=== PATIENT | female | born 1955 | race Caucasian/White ===

== ENCOUNTER 2018-01-11 08:09 | Inpatient (IN) | payer MEDICARE, MEDICAID ==
[2018-01-11] MEDS: Sodium Chloride 0.9% 1,000 ML IV SCH ×3 (16:10→22:39)
--- NOTE | 2018-01-11 16:21 | PCM.HP ---
H&P History of Present Illness - General Date of Service: 01/11/18 Admit Problem/Dx: Admission Diagnosis/Problem Admission Diagnosis/Problem Hypernatremia Source of Information: Other (Caregiver) History Limitations: Reports: Altered Mental Status - History of Present Illness Initial Comments - Free Text/Narative: This is a 62-year-old female patient with profound Down syndrome came to the clinic because of not able to eat for the last 2-3 days and sleeping and not responding. She was found to have elevated creatinine and sodium of over 170. She was sent over for admission for rehydration. She was found to be severely dehydrated. The caregiver says she normally eats when they give her some food and drinks. She said no fevers. She did have 1 small emesis here at the hospital when she was admitted and a loose stool. Before that she has not had that. Cannot get any other history from this patient or the caregiver has no more information either. Past Medical History Neurological History: Reports: Seizure, Other (See Below) (Down syndrome, trigeminal neuralgia) Endocrine/Metabolic History: Reports: Hypothyroidism Social & Family History - Family History Family Medical History: Unobtainable - Living Situation & Occupation Living situation: Reports: Alone (Lives in a senior care.) H&P Review of Systems - Review of Systems: Review Of Systems: Unable To Obtain Exam - Exam Exam: See Below - Exam General: Sedated, Lethargic. No: Alert, Oriented, Cooperative HEENT: Posterior Pharynx Clear, TMs Clear Neck: Supple, Trachea Midline Lungs: Clear to Auscultation, Normal Respiratory Effort. No: Crackles, Rales, Rhonchi Cardiovascular: Regular Rate, Regular Rhythm. No: Tachycardia, Systolic Murmur , Diastolic Murmur GI/Abdominal Exam: Normal Bowel Sounds, Soft, Non-Tender, No Organomegaly, No Distention Back Exam: Normal Inspection Extremities: No Pedal Edema Neurological: Normal Tone. No: Normal Speech Neuro Extensive - Mental Status: Other (Patient response to painful stimuli. Other than that she's sleeping.). No: Alert Neuro Extensive - Motor, Sensory, Reflexes: No: Normal Gait Psychiatric: No: Alert, Normal Affect, Normal Mood *Q Meaningful Use (ADM) - VTE *Q VTE Criteria *Q: - Stroke *Q Stroke Criteria *Q: - AMI *Q AMI Criteria *Q: - Problem List (1) Hypernatremia SNOMED Code(s): 40558488 ICD Code: E87.0 - HYPEROSMOLALITY AND HYPERNATREMIA Status: Acute Current Visit: Yes (2) Acute renal failure SNOMED Code(s): 13228133 ICD Code: N17.9 - ACUTE KIDNEY FAILURE, UNSPECIFIED Status: Acute Current Visit: Yes (3) Dehydration SNOMED Code(s): 79972179 ICD Code: E86.0 - DEHYDRATION Status: Acute Current Visit: Yes (4) Down syndrome SNOMED Code(s): 42072287 ICD Code: Q90.9 - DOWN SYNDROME, UNSPECIFIED Status: Acute Current Visit : No (5) Palliative care encounter SNOMED Code(s): 138141590 ICD Code: Z51.5 - ENCOUNTER FOR PALLIATIVE CARE Status: Acute Current Visit: Yes (6) Hypothyroidism SNOMED Code(s): 72121617 ICD Code: E03.9 - HYPOTHYROIDISM, UNSPECIFIED Status: Acute Current Visit : No Problem List Initiated/Reviewed/Updated: Yes Orders Last 24hrs: Active Orders 24 hr Category Date Time Status Patient Status [ADT] Routine ADT 01/11/18 15:20 Active Patient Status [ADT] Routine ADT 01/11/18 16:12 Ordered Height and Weight [RC] DAILY Care 01/11/18 16:12 Ordered Intake and Output [RC] QSHIFT Care 01/11/18 16:13 Ordered Oxygen Therapy [RC] PRN Care 01/11/18 16:12 Ordered Up With Assistance [RC] ASDIRECTED Care 01/11/18 16:12 Ordered VTE/DVT Education [RC] Per Unit Routine Care 01/11/18 16:12 Ordered Vital Signs [RC] Q4H Care 01/11/18 16:12 Ordered Clear Liquid Diet [DIET] Diet 01/11/18 Dinner Ordered CULTURE BLOOD [BC] Routine Lab 01/11/18 15:41 Ordered CULTURE BLOOD [BC] Routine Lab 01/11/18 16:08 Ordered SODIUM,URINE RANDOM [URCHEM] Routine Lab 01/11/18 15:41 Ordered UA W/MICROSCOPIC [URIN] Routine Lab 01/11/18 15:41 Ordered Enoxaparin [Lovenox] Med 01/11/18 16:15 Ordered 40 mg SUBCUT Q24H Sodium Chloride 0.9% [Normal Saline] 1,000 ml Med 01/11/18 15:45 Active IV ASDIRECTED Sequential Compression Device [OM.PC] Per Unit Routine Oth 01/11/18 16:14 Ordered Resuscitation Status Routine Resus Stat 01/11/18 16:12 Ordered Medication Orders Sodium Chloride (Normal Saline) 1,000 mls @ 150 mls/hr IV ASDIRECTED MAR Assessment/Plan Comment:: 1. Admit for observation. 2. Rehydration with normal saline because she dehydrated. If her sodium stays up later and she is rehydrated consider D5W. 3. Clear liquids. 4. Patient doesn't walk so constant changing patient position is devoid ulcers. 5. VTE prophylaxis. 6. DNR per senior care staff. 7. Urine sodium, UA, blood cultures. 8. She had a chest x-ray in the clinic that was read as negative. No signs of infection so will not start antibiotics at this time.
[2018-01-11] MEDS: Enoxaparin 30 MG/0.3 ML Syringe SUBCUT SCH (18:46)
[2018-01-11] MEDS: Sodium Chloride 0.45% 1,000 ML IV SCH (23:41)
[2018-01-12] MEDS: Sodium Chloride 0.45% 1,000 ML IV SCH (06:11)
--- NOTE | 2018-01-12 08:57 | PCM.PN ---
- General Info Date of Service: 01/12/18 Admission Dx/Problem (Free Text): Patient is alert today. She cannot communicate. Nurses states she had one small diaper of urination that was concentrated. - Patient Data Vitals - Most Recent: Last Vital Signs Temp 97.8 F 01/12/18 04:00 Pulse 69 01/12/18 04:00 Resp 18 01/12/18 04:00 BP 77/35 L 01/12/18 04:00 Pulse Ox 93 L 01/12/18 04:00 Weight - Most Recent: 84 lb 14.72 oz I&O - Last 24 Hours: Intake & Output 01/11/18 01/12/18 01/12/18 22:59 06:59 14:59 Intake Total 1698 1455 Output Total 15 Balance 1683 1455 Lab Results Last 24 Hours: Laboratory Results - last 24 hr 01/11/18 01/11/18 01/11/18 Range/Units 17:00 17:00 22:30 WBC (4.5-12.0) X10-3/uL RBC (3.23-5.20) x10(6)uL Hgb (11.5-15.5) g/dL Hct (30.0-51.3) % MCV (80-96) fL MCH (27.7-33.6) pg MCHC (32.2-35.4) g/dL RDW (11.5-15.5) % Plt Count (125-369) X10(3)uL MPV (7.4-10.4) fL Neut % (Auto) (46-82) % Lymph % (Auto) (13-37) % [place] % (Auto) (4-12) % Eos % (Auto) (1.0-5.0) % Baso % (Auto) (0-2) % Neut # (Auto) (1.6-8.3) # Lymph # (Auto) (0.6-5.0) # [place] # (Auto) (0.0-1.3) # Eos # (Auto) (0.0-0.8) # Baso # (Auto) (0.0-0.2) # Sodium 174 H* (135-145) mmol/L Potassium (3.5-5.3) mmol/L Chloride (100-110) mmol/L Carbon Dioxide (21-32) mmol/L BUN (7-18) mg/dL Creatinine (0.55-1.02) mg/dL Est Cr Clr Drug Dosing mL/min Estimated GFR (MDRD) (>60) BUN/Creatinine Ratio (9-20) Glucose (80-116) mg/dL Calcium (8.6-10.2) mg/dL Total Bilirubin (0.1-1.3) mg/dL AST (5-25) IU/L ALT (12-36) U/L Alkaline Phosphatase (56-112) IU/L Total Protein (6.0-8.0) g/dL Albumin (3.2-4.6) g/dL Globulin g/dL Albumin/Globulin Ratio Urine Color Yellow (YELLOW) Urine Appearance Cloudy (CLEAR) Urine pH 5.0 (5.0-6.5) Ur Specific [place] 1.025 (1.010-1.025) Urine Protein Negative (NEGATIVE) mg/dL Urine Glucose (UA) Normal (NEGATIVE) mg/dL Urine Ketones 15 H (NEGATIVE) mg/dL Urine Occult Blood Negative (NEGATIVE) Urine Nitrite Negative (NEGATIVE) Urine Bilirubin Small H (NEGATIVE) Urine Urobilinogen 4 H (NEGATIVE) mg/dL Ur Leukocyte Esterase Small H (NEGATIVE) Urine RBC 0-5 (0) Urine WBC 0-5 (0) Ur Squamous Epith Cells Moderate H (NS,R,O) Urine Bacteria Few H (NS) Hyaline Casts Few H (NS) Urine Mucus Few H (NS) Ur Random Sodium 36 mmol/L 01/12/18 01/12/18 Range/Units 06:43 06:43 WBC 6.5 (4.5-12.0) X10-3/uL RBC 3.08 L (3.23-5.20) x10(6)uL Hgb 10.4 L (11.5-15.5) g/dL Hct 32.6 (30.0-51.3) % MCV 105.8 H (80-96) fL MCH 34.0 H (27.7-33.6) pg MCHC 32.1 L (32.2-35.4) g/dL RDW 13.8 (11.5-15.5) % Plt Count 99 L (125-369) X10(3)uL MPV 11.1 H (7.4-10.4) fL Neut % (Auto) 80.8 (46-82) % Lymph % (Auto) 13.7 (13-37) % [place] % (Auto) 4.6 (4-12) % Eos % (Auto) 1 (1.0-5.0) % Baso % (Auto) 0 (0-2) % Neut # (Auto) 5.3 (1.6-8.3) # Lymph # (Auto) 0.9 (0.6-5.0) # [place] # (Auto) 0.3 (0.0-1.3) # Eos # (Auto) 0.0 (0.0-0.8) # Baso # (Auto) 0.0 (0.0-0.2) # Sodium 171 H* (135-145) mmol/L Potassium 3.3 L (3.5-5.3) mmol/L Chloride 137 H* (100-110) mmol/L Carbon Dioxide 24 (21-32) mmol/L BUN 76 H (7-18) mg/dL Creatinine 2.2 H* (0.55-1.02) mg/dL Est Cr Clr Drug Dosing 15.71 mL/min Estimated GFR (MDRD) 22 L (>60) BUN/Creatinine Ratio 34.5 H (9-20) Glucose 67 L (80-116) mg/dL Calcium 7.9 L (8.6-10.2) mg/dL Total Bilirubin 0.9 (0.1-1.3) mg/dL AST 42 H (5-25) IU/L ALT 35 (12-36) U/L Alkaline Phosphatase 36 L (56-112) IU/L Total Protein 5.4 L (6.0-8.0) g/dL Albumin 1.9 L (3.2-4.6) g/dL Globulin 3.5 g/dL Albumin/Globulin Ratio 0.5 Urine Color (YELLOW) Urine Appearance (CLEAR) Urine pH (5.0-6.5) Ur Specific [place] (1.010-1.025) Urine Protein (NEGATIVE) mg/dL Urine Glucose (UA) (NEGATIVE) mg/dL Urine Ketones (NEGATIVE) mg/dL Urine Occult Blood (NEGATIVE) Urine Nitrite (NEGATIVE) Urine Bilirubin (NEGATIVE) Urine Urobilinogen (NEGATIVE) mg/dL Ur Leukocyte Esterase (NEGATIVE) Urine RBC (0) Urine WBC (0) Ur Squamous Epith Cells (NS,R,O) Urine Bacteria (NS) Hyaline Casts (NS) Urine Mucus (NS) Ur Random Sodium mmol/L Med Orders - Current: Current Medications Enoxaparin Sodium (Lovenox) 30 mg SUBCUT Q24H [facility] Last Admin: 01/11/18 18:46 Dose: 30 mg Sodium Chloride (Sodium Chloride 0.45%) 1,000 mls @ 150 mls/hr IV ASDIRECTED [facility] Last Admin: 01/12/18 06:11 Dose: 150 mls/hr Discontinued Medications Sodium Chloride (Normal Saline) 1,000 mls @ 150 mls/hr IV ASDIRECTED [facility] Last Admin: 01/11/18 22:39 Dose: 150 mls/hr - Exam General: Alert. No: Oriented Lungs: Clear to Auscultation, Normal Respiratory Effort Cardiovascular: Regular Rate, Regular Rhythm, No Murmurs GI/Abdominal Exam: Normal Bowel Sounds, Soft, Non-Tender Extremities: No Pedal Edema - Problem List & Annotations (1) Hypernatremia SNOMED Code(s): 17025804 Code(s): E87.0 - HYPEROSMOLALITY AND HYPERNATREMIA Status: Acute Current Visit: Yes (2) Acute renal failure SNOMED Code(s): 67757774 Code(s): N17.9 - ACUTE KIDNEY FAILURE, UNSPECIFIED Status: Acute Current Visit: Yes (3) Dehydration SNOMED Code(s): 62006443 Code(s): E86.0 - DEHYDRATION Status: Acute Current Visit: Yes (4) Down syndrome SNOMED Code(s): 89508530 Code(s): Q90.9 - DOWN SYNDROME, UNSPECIFIED Status: Acute Current Visit: No (5) Palliative care encounter SNOMED Code(s): 197224669 Code(s): Z51.5 - ENCOUNTER FOR PALLIATIVE CARE Status: Acute Current Visit: Yes (6) Hypothyroidism SNOMED Code(s): 50600672 Code(s): E03.9 - HYPOTHYROIDISM, UNSPECIFIED Status: Acute Current Visit : No - Problem List Review Problem List Initiated/Reviewed/Updated: Yes - My Orders Last 24 Hours: My Active Orders 01/11/18 15:00 Urinary Catheter Insertion [Insert Urinary Catheter] [OM.PC] Q24H 01/11/18 15:20 Patient Status [ADT] Routine 01/11/18 16:12 Patient Status [ADT] Routine Height and Weight [RC] 06 Oxygen Therapy [RC] PRN Up With Assistance [RC] ASDIRECTED Vital Signs [RC] 00,04,08,12,16,20 Resuscitation Status Routine 01/11/18 16:13 Intake and Output [RC] 06,14,22 01/11/18 16:14 Sequential Compression Device [OM.PC] Per Unit Routine 01/11/18 16:20 CULTURE BLOOD [BC] Routine 01/11/18 16:30 CULTURE BLOOD [BC] Routine 01/11/18 18:00 Enoxaparin [Lovenox] 30 mg SUBCUT Q24H 01/11/18 Dinner Clear Liquid Diet [DIET] 01/12/18 00:00 Bladder Scan [RC] ASDIRECTED - Plan Plan:: 1. Continue aggressive hydration with normal saline until I feel she is hydrated. Then consider giving some free water to bring her sodium down. 2. Advance her diet to pured diet or whatever she is on at the skilled nursing. 3. Restart home medications. 4. Platelets are below 100. There a little bottle 100 before. She's on Lovenox so I'll repeat her CBC and Chem-12 in the a.m.
[2018-01-12] MEDS: Sodium Chloride 0.45% with KCl 1,000 ML IV SCH ×2 (10:09→16:55)
[2018-01-12] MEDS: GENTEAL EYE EYERT SCH ×4 (10:09→20:18)
[2018-01-12] MEDS: Divalproex Sodium 250 MG Tab.ER PO SCH ×2 (10:13→17:58)
[2018-01-12] MEDS: [UNRECOGNIZED DRUG - OTHER] TOP SCH ×2 (10:24→20:18)
[2018-01-12] MEDS: Enoxaparin 30 MG/0.3 ML Syringe SUBCUT SCH (17:54)
[2018-01-12] MEDS: Levothyroxine 75 MCG Tab PO SCH (20:20)
[2018-01-12] MEDS ORDERED: Sodium Chloride 0.45% with KCl 1,000 ML IV SCH (23:45)
[2018-01-13] MEDS: Sodium Chloride 0.45% with KCl 1,000 ML IV SCH (00:08)
--- NOTE | 2018-01-13 08:24 | PCM.PN ---
- General Info Date of Service: 01/13/18 Admission Dx/Problem (Free Text): Patient sleeping this morning. Yesterday she was alert and today sleeping. Not able to give history because of her severe Down syndrome. - Patient Data Vitals - Most Recent: Last Vital Signs Temp 99.4 F 01/13/18 07:17 Pulse 74 01/13/18 05:00 Resp 20 01/13/18 07:17 BP 88/40 L 01/13/18 07:17 Pulse Ox 100 01/13/18 07:17 Weight - Most Recent: 89 lb I&O - Last 24 Hours: Intake & Output 01/12/18 01/13/18 01/13/18 22:59 06:59 14:59 Intake Total 1099 1107 Balance 1099 1107 Lab Results Last 24 Hours: Laboratory Results - last 24 hr 01/12/18 01/13/18 01/13/18 Range/Units 15:07 06:40 06:40 WBC 2.6 L (4.5-12.0) X10-3/uL RBC 2.45 L (3.23-5.20) x10(6)uL Hgb 8.6 L (11.5-15.5) g/dL Hct 25.5 L (30.0-51.3) % MCV 104.0 H (80-96) fL MCH 35.3 H (27.7-33.6) pg MCHC 34.0 (32.2-35.4) g/dL RDW 13.2 (11.5-15.5) % Plt Count 70 L (125-369) X10(3)uL MPV 9.9 (7.4-10.4) fL Neut % (Auto) 64.7 (46-82) % Lymph % (Auto) 23.7 (13-37) % [place] % (Auto) 7.0 (4-12) % Eos % (Auto) 2 (1.0-5.0) % Baso % (Auto) 3 H (0-2) % Neut # (Auto) 1.6 (1.6-8.3) # Lymph # (Auto) 0.6 (0.6-5.0) # [place] # (Auto) 0.2 (0.0-1.3) # Eos # (Auto) 0.1 (0.0-0.8) # Baso # (Auto) 0.1 (0.0-0.2) # Sodium 167 H* 159 H (135-145) mmol/L Potassium 4.3 D (3.5-5.3) mmol/L Chloride 130 H* D (100-110) mmol/L Carbon Dioxide 21 (21-32) mmol/L BUN 48 H D (7-18) mg/dL Creatinine 1.5 H (0.55-1.02) mg/dL Est Cr Clr Drug Dosing 24.15 mL/min Estimated GFR (MDRD) 35 L (>60) BUN/Creatinine Ratio 32.0 H (9-20) Glucose 78 L (80-116) mg/dL Calcium 7.4 L (8.6-10.2) mg/dL Total Bilirubin 0.8 (0.1-1.3) mg/dL AST 85 H D (5-25) IU/L ALT 47 H D (12-36) U/L Alkaline Phosphatase 31 L (56-112) IU/L Total Protein 5.0 L (6.0-8.0) g/dL Albumin 1.7 L* (3.2-4.6) g/dL Globulin 3.3 g/dL Albumin/Globulin Ratio 0.5 Adan Results Last 24 Hours: Microbiology 01/11/18 16:30 Aerobic Blood Culture - Preliminary Blood NO GROWTH AFTER 1 DAY Anaerobic Blood Culture - Preliminary NO GROWTH AFTER 1 DAY 01/11/18 16:20 Aerobic Blood Culture - Preliminary Blood NO GROWTH AFTER 1 DAY Anaerobic Blood Culture - Preliminary NO GROWTH AFTER 1 DAY Med Orders - Current: Current Medications Divalproex Sodium (Depakote Er) 250 mg PO DAILY [facility] Last Admin: 01/12/18 10:13 Dose: 250 mg Divalproex Sodium (Depakote Er) 500 mg PO WITHDINNER [facility] Last Admin: 01/12/18 17:58 Dose: 500 mg Hydrophilic Base (Aquaphilic Ointment) 0 gm TOP BID@10,20 [facility] Last Admin: 01/12/18 20:18 Dose: 1 applic Levothyroxine Sodium (Levothyroxine) 75 mcg PO BEDTIME [facility] Last Admin: 01/12/18 20:20 Dose: 75 mcg Genteal Eye Drops * (Ptom) 0 drop EYERT QID [facility] Last Admin: 01/12/18 20:18 Dose: 1 drop Discontinued Medications Enoxaparin Sodium (Lovenox) 30 mg SUBCUT Q24H [facility] Last Admin: 01/12/18 17:54 Dose: 30 mg Sodium Chloride (Normal Saline) 1,000 mls @ 150 mls/hr IV ASDIRECTED [facility] Last Admin: 01/11/18 22:39 Dose: 150 mls/hr Sodium Chloride (Sodium Chloride 0.45%) 1,000 mls @ 150 mls/hr IV ASDIRECTED [facility] Last Admin: 01/12/18 06:11 Dose: 150 mls/hr Potassium Chloride/Sodium Chloride (1/2 Ns With 20 Meq Kcl) 1,000 mls @ 100 mls /hr IV Q7H [facility] Last Admin: 01/13/18 00:08 Dose: Not Given Potassium Chloride/Sodium Chloride (1/2 Ns With 20 Meq Kcl) 1,000 mls @ 100 mls /hr IV ASDIRECTED [facility] Last Admin: 01/13/18 00:09 Dose: 100 mls/hr - Exam General: Alert, Other (Sleeping) Neck: Supple Lungs: Clear to Auscultation, Normal Respiratory Effort Cardiovascular: Regular Rate, Regular Rhythm, No Murmurs - Problem List & Annotations (1) Hypernatremia SNOMED Code(s): 23182089 Code(s): E87.0 - HYPEROSMOLALITY AND HYPERNATREMIA Status: Acute Current Visit: Yes (2) Acute renal failure SNOMED Code(s): 52255527 Code(s): N17.9 - ACUTE KIDNEY FAILURE, UNSPECIFIED Status: Acute Current Visit: Yes (3) Dehydration SNOMED Code(s): 26231028 Code(s): E86.0 - DEHYDRATION Status: Acute Current Visit: Yes (4) Down syndrome SNOMED Code(s): 41470270 Code(s): Q90.9 - DOWN SYNDROME, UNSPECIFIED Status: Acute Current Visit: No (5) Palliative care encounter SNOMED Code(s): 813023302 Code(s): Z51.5 - ENCOUNTER FOR PALLIATIVE CARE Status: Acute Current Visit: Yes (6) Hypothyroidism SNOMED Code(s): 93014244 Code(s): E03.9 - HYPOTHYROIDISM, UNSPECIFIED Status: Acute Current Visit : No (7) Thrombocytopenia SNOMED Code(s): 642324722 Code(s): D69.6 - THROMBOCYTOPENIA, UNSPECIFIED Status: Acute Current Visit: Yes - Problem List Review Problem List Initiated/Reviewed/Updated: Yes - My Orders Last 24 Hours: My Active Orders 01/12/18 09:00 Dextran 70/Hypromellose [Genteal Tears 0.1%-0.3% Drop] 0 drop EYERT QID Divalproex Sodium [Depakote ER] 250 mg PO DAILY 01/12/18 10:00 Hydrophilic Ointment [Aquaphilic Ointment] 0 gm TOP BID@10,20 01/12/18 18:00 Divalproex Sodium [Depakote ER] 500 mg PO WITHDINNER 01/12/18 21:00 Levothyroxine 75 mcg PO BEDTIME 01/12/18 Lunch Adult Diet [DIET] 01/13/18 08:30 D5 1/2 NS w/ 20 mEq/L KCl 1,000 ml IV ASDIRECTED 01/13/18 15:30 SODIUM,NA [CHEM] Routine - Plan Plan:: 1. Check sodium 3:30 PM today. 2. Change fluids to D5 half-normal 20 KCl at 100 mL an hour. 3. Stop Lovenox due to decrease in platelets. 4. Change vitals to every shift.
[2018-01-13] MEDS: GENTEAL EYE EYERT SCH ×4 (09:41→21:38)
[2018-01-13] MEDS: Divalproex Sodium 250 MG Tab.ER PO SCH ×2 (09:42→18:44)
[2018-01-13] MEDS: [UNRECOGNIZED DRUG - OTHER] TOP SCH ×2 (09:43→21:00)
[2018-01-13] MEDS: D5 1/2 NS w/ 20 mEq/L KCl 1,000 ML IV SCH (15:11)
[2018-01-13] MEDS: Levothyroxine 75 MCG Tab PO SCH (21:38)
[2018-01-14] MEDS: D5 1/2 NS w/ 20 mEq/L KCl 1,000 ML IV SCH ×3 (01:37→21:45)
--- NOTE | 2018-01-14 08:15 | PCM.PN ---
- General Info Date of Service: 01/14/18 Admission Dx/Problem (Free Text): Patient is alert sitting in her chair. Because of her profound Down syndrome she cannot respond to questions. The staff says she is eating about a quarter of her food this time. - Patient Data Vitals - Most Recent: Last Vital Signs Temp 98.2 F 01/14/18 03:25 Pulse 70 01/14/18 03:25 Resp 20 01/14/18 03:25 BP 107/43 L 01/14/18 03:25 Pulse Ox 97 01/14/18 03:25 Weight - Most Recent: 89 lb 8 oz I&O - Last 24 Hours: Intake & Output 01/13/18 01/14/18 01/14/18 22:59 06:59 14:59 Intake Total 786 743 Balance 786 743 Lab Results Last 24 Hours: Laboratory Results - last 24 hr 01/13/18 01/14/18 01/14/18 Range/Units 15:30 06:45 06:45 WBC 3.5 L (4.5-12.0) X10-3/uL RBC 2.69 L (3.23-5.20) x10(6)uL Hgb 9.5 L (11.5-15.5) g/dL Hct 28.2 L (30.0-51.3) % MCV 104.6 H (80-96) fL MCH 35.2 H (27.7-33.6) pg MCHC 33.6 (32.2-35.4) g/dL RDW 12.9 (11.5-15.5) % Plt Count 70 L (125-369) X10(3)uL MPV 10.8 H (7.4-10.4) fL Neut % (Auto) 58.7 (46-82) % Lymph % (Auto) 29.3 (13-37) % [place] % (Auto) 8.6 (4-12) % Eos % (Auto) 2 (1.0-5.0) % Baso % (Auto) 1 (0-2) % Neut # (Auto) 2.1 (1.6-8.3) # Lymph # (Auto) 1.0 (0.6-5.0) # [place] # (Auto) 0.3 (0.0-1.3) # Eos # (Auto) 0.1 (0.0-0.8) # Baso # (Auto) 0.0 (0.0-0.2) # Sodium 157 H 153 H (135-145) mmol/L Potassium 4.0 (3.5-5.3) mmol/L Chloride 124 H* D (100-110) mmol/L Carbon Dioxide 21 (21-32) mmol/L BUN 27 H D (7-18) mg/dL Creatinine 1.2 H (0.55-1.02) mg/dL Est Cr Clr Drug Dosing 30.35 mL/min Estimated GFR (MDRD) 45 L (>60) BUN/Creatinine Ratio 22.5 H (9-20) Glucose 100 (80-116) mg/dL Calcium 7.7 L (8.6-10.2) mg/dL Total Bilirubin 0.4 (0.1-1.3) mg/dL AST 54 H D (5-25) IU/L ALT 46 H (12-36) U/L Alkaline Phosphatase 37 L (56-112) IU/L Total Protein 5.2 L (6.0-8.0) g/dL Albumin 1.8 L (3.2-4.6) g/dL Globulin 3.4 g/dL Albumin/Globulin Ratio 0.5 Adan Results Last 24 Hours: Microbiology 01/11/18 16:30 Aerobic Blood Culture - Preliminary Blood NO GROWTH AFTER 2 DAYS Anaerobic Blood Culture - Preliminary NO GROWTH AFTER 2 DAYS 01/11/18 16:20 Aerobic Blood Culture - Preliminary Blood NO GROWTH AFTER 2 DAYS Anaerobic Blood Culture - Preliminary NO GROWTH AFTER 2 DAYS Med Orders - Current: Current Medications Divalproex Sodium (Depakote Er) 250 mg PO DAILY [facility] Last Admin: 01/13/18 09:42 Dose: 250 mg Divalproex Sodium (Depakote Er) 500 mg PO WITHDINNER [facility] Last Admin: 01/13/18 18:44 Dose: 500 mg Hydrophilic Base (Aquaphilic Ointment) 0 gm TOP BID@10,20 [facility] Last Admin: 01/13/18 21:00 Dose: 1 applic Potassium Chloride/Dextrose/Sod Cl (D5 1/2 Ns W/ 20 Meq/L Kcl) 1,000 mls @ 100 mls/hr IV ASDIRECTED [facility] Last Admin: 01/14/18 01:37 Dose: 100 mls/hr Levothyroxine Sodium (Levothyroxine) 75 mcg PO BEDTIME [facility] Last Admin: 01/13/18 21:38 Dose: 75 mcg Genteal Eye Drops * (Ptom) 0 drop EYERT QID [facility] Last Admin: 01/13/18 21:38 Dose: 1 drop Discontinued Medications Enoxaparin Sodium (Lovenox) 30 mg SUBCUT Q24H [facility] Last Admin: 01/12/18 17:54 Dose: 30 mg Sodium Chloride (Normal Saline) 1,000 mls @ 150 mls/hr IV ASDIRECTED [facility] Last Admin: 01/11/18 22:39 Dose: 150 mls/hr Sodium Chloride (Sodium Chloride 0.45%) 1,000 mls @ 150 mls/hr IV ASDIRECTED [facility] Last Admin: 01/12/18 06:11 Dose: 150 mls/hr Potassium Chloride/Sodium Chloride (1/2 Ns With 20 Meq Kcl) 1,000 mls @ 100 mls /hr IV Q7H [facility] Last Admin: 01/13/18 00:08 Dose: Not Given Potassium Chloride/Sodium Chloride (1/2 Ns With 20 Meq Kcl) 1,000 mls @ 100 mls /hr IV ASDIRECTED [facility] Last Admin: 01/13/18 00:09 Dose: 100 mls/hr - Exam General: Alert. No: Oriented, Cooperative Lungs: Clear to Auscultation, Normal Respiratory Effort Cardiovascular: Regular Rate, Regular Rhythm, No Murmurs Extremities: No Pedal Edema - Problem List & Annotations (1) Hypernatremia SNOMED Code(s): 53501739 Code(s): E87.0 - HYPEROSMOLALITY AND HYPERNATREMIA Status: Acute Current Visit: Yes (2) Acute renal failure SNOMED Code(s): 21852168 Code(s): N17.9 - ACUTE KIDNEY FAILURE, UNSPECIFIED Status: Acute Current Visit: Yes (3) Dehydration SNOMED Code(s): 34388761 Code(s): E86.0 - DEHYDRATION Status: Acute Current Visit: Yes (4) Down syndrome SNOMED Code(s): 28645246 Code(s): Q90.9 - DOWN SYNDROME, UNSPECIFIED Status: Acute Current Visit: No (5) Palliative care encounter SNOMED Code(s): 608172266 Code(s): Z51.5 - ENCOUNTER FOR PALLIATIVE CARE Status: Acute Current Visit: Yes (6) Hypothyroidism SNOMED Code(s): 41952811 Code(s): E03.9 - HYPOTHYROIDISM, UNSPECIFIED Status: Acute Current Visit : No (7) Thrombocytopenia SNOMED Code(s): 040024233 Code(s): D69.6 - THROMBOCYTOPENIA, UNSPECIFIED Status: Acute Current Visit: Yes (8) Anemia SNOMED Code(s): 713675865 Code(s): D64.9 - ANEMIA, UNSPECIFIED Status: Acute Current Visit: Yes - Problem List Review Problem List Initiated/Reviewed/Updated: Yes - My Orders Last 24 Hours: My Active Orders 01/13/18 08:30 D5 1/2 NS w/ 20 mEq/L KCl 1,000 ml IV ASDIRECTED 01/14/18 08:10 Patient Status [ADT] Routine 01/14/18 08:12 SODIUM,NA [CHEM] Routine 01/15/18 05:11 CBC WITH AUTO DIFF [HEME] AM COMPREHENSIVE METABOLIC PN,CMP [CHEM] AM - Plan Plan:: 1. Made the patient impatient today. 2. Continue the D5 water. Sodium is coming on slowly as we would like. 3. Continue to hold Lovenox due to platelets be and 70.
[2018-01-14] MEDS: GENTEAL EYE EYERT SCH (08:38)
[2018-01-14] MEDS: Divalproex Sodium 250 MG Tab.ER PO SCH ×2 (08:38→18:24)
[2018-01-14] MEDS: [UNRECOGNIZED DRUG - OTHER] TOP SCH (10:00)
[2018-01-14] MEDS ORDERED: [UNRECOGNIZED DRUG - OTHER] TOP SCH (10:29)
[2018-01-14] MEDS: Hypromellose 0.3% Ophth Soln 15 ML Bottle EYERT SCH ×3 (13:00→20:25)
[2018-01-14] MEDS: Levothyroxine 75 MCG Tab PO SCH (20:25)
[2018-01-15] MEDS: Divalproex Sodium 250 MG Tab.ER PO SCH (08:47)
--- NOTE | 2018-01-15 09:32 | PCM.PN ---
- General Info Date of Service: 01/15/18 Admission Dx/Problem (Free Text): Patient sleeping. Nurses report she is eating about a quarter of her food at this time. I give a history because of her mental condition. - Patient Data Vitals - Most Recent: Last Vital Signs Temp 97.8 F 01/15/18 04:00 Pulse 68 01/15/18 04:00 Resp 16 01/15/18 04:00 BP 120/58 L 01/15/18 04:00 Pulse Ox 95 01/15/18 04:00 Weight - Most Recent: 90 lb I&O - Last 24 Hours: Intake & Output 01/14/18 01/15/18 01/15/18 22:59 06:59 14:59 Intake Total 1673 Balance 1673 Lab Results Last 24 Hours: Laboratory Results - last 24 hr 01/14/18 01/15/18 01/15/18 Range/Units 15:50 06:35 06:35 WBC 2.5 L (4.5-12.0) X10-3/uL RBC 3.43 (3.23-5.20) x10(6)uL Hgb 8.4 L (11.5-15.5) g/dL Hct 25.1 L (30.0-51.3) % MCV 104.0 H (80-96) fL MCH 35.3 H (27.7-33.6) pg MCHC 34.0 (32.2-35.4) g/dL RDW 13.1 (11.5-15.5) % Plt Count 83 L (125-369) X10(3)uL MPV 11.1 H (7.4-10.4) fL Neut % (Auto) 59.2 (46-82) % Lymph % (Auto) 28.5 (13-37) % [place] % (Auto) 9.7 (4-12) % Eos % (Auto) 2 (1.0-5.0) % Baso % (Auto) 0 (0-2) % Neut # (Auto) 1.5 L (1.6-8.3) # Lymph # (Auto) 0.7 (0.6-5.0) # [place] # (Auto) 0.2 (0.0-1.3) # Eos # (Auto) 0.1 (0.0-0.8) # Baso # (Auto) 0.0 (0.0-0.2) # Sodium 151 H 148 H (135-145) mmol/L Potassium 4.4 (3.5-5.3) mmol/L Chloride 119 H* D (100-110) mmol/L Carbon Dioxide 23 (21-32) mmol/L BUN 14 D (7-18) mg/dL Creatinine 1.1 H (0.55-1.02) mg/dL Est Cr Clr Drug Dosing 33.30 mL/min Estimated GFR (MDRD) 50 L (>60) BUN/Creatinine Ratio 12.7 (9-20) Glucose 91 (80-116) mg/dL Calcium 7.9 L (8.6-10.2) mg/dL Total Bilirubin 0.4 (0.1-1.3) mg/dL AST 61 H D (5-25) IU/L ALT 62 H D (12-36) U/L Alkaline Phosphatase 44 L (56-112) IU/L Total Protein 5.3 L (6.0-8.0) g/dL Albumin 1.9 L (3.2-4.6) g/dL Globulin 3.4 g/dL Albumin/Globulin Ratio 0.6 Adan Results Last 24 Hours: Microbiology 01/11/18 16:30 Aerobic Blood Culture - Preliminary Blood NO GROWTH AFTER 3 DAYS Anaerobic Blood Culture - Preliminary NO GROWTH AFTER 3 DAYS 01/11/18 16:20 Aerobic Blood Culture - Preliminary Blood NO GROWTH AFTER 3 DAYS Anaerobic Blood Culture - Preliminary NO GROWTH AFTER 3 DAYS Med Orders - Current: Current Medications Artificial Tears (Genteal Mild To Moderate Ophth Soln) 0 ml EYERT QID [facility] Last Admin: 01/14/18 20:25 Dose: 1 drop Divalproex Sodium (Depakote Er) 250 mg PO DAILY [facility] Last Admin: 01/15/18 08:47 Dose: 250 mg Divalproex Sodium (Depakote Er) 500 mg PO WITHDINNER [facility] Last Admin: 01/14/18 18:24 Dose: 500 mg Hydrophilic Base (Aquaphilic Ointment) 0 gm TOP BID@10,20 [facility] Last Admin: 01/14/18 20:24 Dose: 1 applic Potassium Chloride/Dextrose/Sod Cl (D5 1/2 Ns W/ 20 Meq/L Kcl) 1,000 mls @ 100 mls/hr IV Q10H [facility] Last Admin: 01/14/18 21:45 Dose: 100 mls/hr Levothyroxine Sodium (Levothyroxine) 75 mcg PO BEDTIME [facility] Last Admin: 01/14/18 20:25 Dose: 75 mcg Discontinued Medications Enoxaparin Sodium (Lovenox) 30 mg SUBCUT Q24H [facility] Last Admin: 01/12/18 17:54 Dose: 30 mg Hydrophilic Base (Aquaphilic Ointment) 0 gm TOP BID@10,20 [facility] Last Admin: 01/14/18 10:00 Dose: 1 applic Sodium Chloride (Normal Saline) 1,000 mls @ 150 mls/hr IV ASDIRECTED [facility] Last Admin: 01/11/18 22:39 Dose: 150 mls/hr Sodium Chloride (Sodium Chloride 0.45%) 1,000 mls @ 150 mls/hr IV ASDIRECTED [facility] Last Admin: 01/12/18 06:11 Dose: 150 mls/hr Potassium Chloride/Sodium Chloride (1/2 Ns With 20 Meq Kcl) 1,000 mls @ 100 mls /hr IV Q7H [facility] Last Admin: 01/13/18 00:08 Dose: Not Given Potassium Chloride/Sodium Chloride (1/2 Ns With 20 Meq Kcl) 1,000 mls @ 100 mls /hr IV ASDIRECTED [facility] Last Admin: 01/13/18 00:09 Dose: 100 mls/hr Potassium Chloride/Dextrose/Sod Cl (D5 1/2 Ns W/ 20 Meq/L Kcl) 1,000 mls @ 100 mls/hr IV ASDIRECTED [facility] Stop: 01/14/18 11:29 Last Admin: 01/14/18 01:37 Dose: 100 mls/hr Genteal Eye Drops * (Ptom) 0 drop EYERT QID [facility] Last Admin: 01/14/18 08:38 Dose: 1 drop - Exam General: Alert. No: Oriented, Cooperative Lungs: Clear to Auscultation, Normal Respiratory Effort Cardiovascular: Regular Rate, No Murmurs - Problem List & Annotations (1) Hypernatremia SNOMED Code(s): 15878534 Code(s): E87.0 - HYPEROSMOLALITY AND HYPERNATREMIA Status: Acute Current Visit: Yes (2) Acute renal failure SNOMED Code(s): 86653976 Code(s): N17.9 - ACUTE KIDNEY FAILURE, UNSPECIFIED Status: Acute Current Visit: Yes (3) Dehydration SNOMED Code(s): 39036888 Code(s): E86.0 - DEHYDRATION Status: Acute Current Visit: Yes (4) Down syndrome SNOMED Code(s): 14814054 Code(s): Q90.9 - DOWN SYNDROME, UNSPECIFIED Status: Acute Current Visit: No (5) Palliative care encounter SNOMED Code(s): 013565246 Code(s): Z51.5 - ENCOUNTER FOR PALLIATIVE CARE Status: Acute Current Visit: Yes (6) Hypothyroidism SNOMED Code(s): 02355497 Code(s): E03.9 - HYPOTHYROIDISM, UNSPECIFIED Status: Acute Current Visit : No (7) Thrombocytopenia SNOMED Code(s): 557845653 Code(s): D69.6 - THROMBOCYTOPENIA, UNSPECIFIED Status: Acute Current Visit: Yes (8) Anemia SNOMED Code(s): 779598369 Code(s): D64.9 - ANEMIA, UNSPECIFIED Status: Acute Current Visit: Yes - Problem List Review Problem List Initiated/Reviewed/Updated: Yes - My Orders Last 24 Hours: My Active Orders 01/14/18 10:29 Hydrophilic Ointment [Aquaphilic Ointment] 0 gm TOP BID@10,20 01/14/18 11:30 D5 1/2 NS w/ 20 mEq/L KCl 1,000 ml IV Q10H 01/14/18 13:00 Hypromellose [GenTeal Mild to Moderate Ophth Soln] 0 ml EYERT QID - Plan Plan:: 1. Sodium is 148 so I will discharge to home on a low sodium diet.
--- NOTE | 2018-01-15 09:36 | PCM.DCSUM1 ---
Discharge Summary - Hospital Course Free Text/Narrative:: Hospital course-a she was admitted is very lethargic.. Dehydrated. Some initially gave her normal saline boluses and got her hydrated. After that we switch to D5 half-normal consider sodium still remained in the 170s. And slowly came down over 34 days to 148. Patient was definitely more awake. Only eating probably quarter of her meal. Her platelets started to drop even though there were low on the Lovenox we stopped that they started to come back from 70-83. She was anemic will she was here. Liver function is slightly elevated. Brief History: This is a 62-year-old female patient with profound Down syndrome came to the clinic because of not able to eat for the last 2-3 days and sleeping and not responding. She was found to have elevated creatinine and sodium of over 170. She was sent over for admission for rehydration. She was found to be severely dehydrated. The caregiver says she normally eats when they give her some food and drinks. She said no fevers. She did have 1 small emesis here at the hospital when she was admitted and a loose stool. Before that she has not had that. Cannot get any other history from this patient or the caregiver has no more information either. - Discharge Data Discharge Date: 01/15/18 Discharge Disposition: Home, Self-Care 01 Condition: Fair - Discharge Diagnosis/Problem(s) (1) Hypernatremia SNOMED Code(s): 81534076 ICD Code: E87.0 - HYPEROSMOLALITY AND HYPERNATREMIA Status: Acute Current Visit: Yes (2) Acute renal failure SNOMED Code(s): 35934742 ICD Code: N17.9 - ACUTE KIDNEY FAILURE, UNSPECIFIED Status: Acute Current Visit: Yes (3) Dehydration SNOMED Code(s): 80546650 ICD Code: E86.0 - DEHYDRATION Status: Acute Current Visit: Yes (4) Down syndrome SNOMED Code(s): 94242391 ICD Code: Q90.9 - DOWN SYNDROME, UNSPECIFIED Status: Acute Current Visit : No (5) Palliative care encounter SNOMED Code(s): 590610091 ICD Code: Z51.5 - ENCOUNTER FOR PALLIATIVE CARE Status: Acute Current Visit: Yes (6) Hypothyroidism SNOMED Code(s): 32007475 ICD Code: E03.9 - HYPOTHYROIDISM, UNSPECIFIED Status: Acute Current Visit : No (7) Thrombocytopenia SNOMED Code(s): 036172690 ICD Code: D69.6 - THROMBOCYTOPENIA, UNSPECIFIED Status: Acute Current Visit: Yes (8) Anemia SNOMED Code(s): 759797241 ICD Code: D64.9 - ANEMIA, UNSPECIFIED Status: Acute Current Visit: Yes - Patient Instructions Diet: Low Sodium Activity: As Tolerated Driving: Do Not Drive Showering/Bathing: May Shower Other/Special Instructions: 1. Recheck in [address] Alonso with a CBC and panel 8. 2. Important to feed her and make sure she is getting water. - Discharge Plan Home Medications: Home Meds Calc/D3/Mag/Zn/Bead Wire Taper/Yevgeniy/[place] [Calcium 600 MG Plus Vit D] 1 tab PO BIDMEALS 12/30 [History] Cholecalciferol (Vitamin D3) [Vitamin D3] 1,000 unit PO DAILY 01/11/18 [History] Dextran 70/Hypromellose [Genteal Tears 0.1%-0.3% Drop] 1 drop EYERT QID [History] Divalproex Sodium [Divalproex Sodium ER] 250 mg PO DAILY 01/11/18 [History] Divalproex Sodium [Divalproex Sodium ER] 500 mg PO WITHDINNER 01/11/18 [History] Docusate Sodium 100 mg PO WITHDINNER 01/11/18 [History] Hydrophilic Ointment [Aquaphilic Ointment] 1 applic TOP BID@10,20 01/11/18 [ History] Levothyroxine 75 mcg PO BEDTIME 01/11/18 [History] Melatonin 3 mg PO WITHDINNER 01/11/18 [History] Mineral Oil [Muri-Lube] 4 drop EARBOTH TUTHSA@2100 01/11/18 [History] Omeprazole 40 mg PO DAILY 01/11/18 [History] Petrolatum,White [Petroleum Jelly] 1 applic TOP TID 01/11/18 [History] - Discharge Summary/Plan Comment DC Time >30 min.: No - Patient Data Vitals - Most Recent: Last Vital Signs Temp 97.8 F 01/15/18 04:00 Pulse 68 01/15/18 04:00 Resp 16 01/15/18 04:00 BP 120/58 L 01/15/18 04:00 Pulse Ox 95 01/15/18 04:00 Weight - Most Recent: 90 lb I&O - Last 24 hours: Intake & Output 01/14/18 01/15/18 01/15/18 22:59 06:59 14:59 Intake Total 1673 Balance 1673 Lab Results - Last 24 hrs: Laboratory Results - last 24 hr 01/14/18 01/15/18 01/15/18 Range/Units 15:50 06:35 06:35 WBC 2.5 L (4.5-12.0) X10-3/uL RBC 3.43 (3.23-5.20) x10(6)uL Hgb 8.4 L (11.5-15.5) g/dL Hct 25.1 L (30.0-51.3) % MCV 104.0 H (80-96) fL MCH 35.3 H (27.7-33.6) pg MCHC 34.0 (32.2-35.4) g/dL RDW 13.1 (11.5-15.5) % Plt Count 83 L (125-369) X10(3)uL MPV 11.1 H (7.4-10.4) fL Neut % (Auto) 59.2 (46-82) % Lymph % (Auto) 28.5 (13-37) % [place] % (Auto) 9.7 (4-12) % Eos % (Auto) 2 (1.0-5.0) % Baso % (Auto) 0 (0-2) % Neut # (Auto) 1.5 L (1.6-8.3) # Lymph # (Auto) 0.7 (0.6-5.0) # [place] # (Auto) 0.2 (0.0-1.3) # Eos # (Auto) 0.1 (0.0-0.8) # Baso # (Auto) 0.0 (0.0-0.2) # Sodium 151 H 148 H (135-145) mmol/L Potassium 4.4 (3.5-5.3) mmol/L Chloride 119 H* D (100-110) mmol/L Carbon Dioxide 23 (21-32) mmol/L BUN 14 D (7-18) mg/dL Creatinine 1.1 H (0.55-1.02) mg/dL Est Cr Clr Drug Dosing 33.30 mL/min Estimated GFR (MDRD) 50 L (>60) BUN/Creatinine Ratio 12.7 (9-20) Glucose 91 (80-116) mg/dL Calcium 7.9 L (8.6-10.2) mg/dL Total Bilirubin 0.4 (0.1-1.3) mg/dL AST 61 H D (5-25) IU/L ALT 62 H D (12-36) U/L Alkaline Phosphatase 44 L (56-112) IU/L Total Protein 5.3 L (6.0-8.0) g/dL Albumin 1.9 L (3.2-4.6) g/dL Globulin 3.4 g/dL Albumin/Globulin Ratio 0.6 SANTI Results - Last 24 hrs: Microbiology 01/11/18 16:30 Aerobic Blood Culture - Preliminary Blood NO GROWTH AFTER 3 DAYS Anaerobic Blood Culture - Preliminary NO GROWTH AFTER 3 DAYS 01/11/18 16:20 Aerobic Blood Culture - Preliminary Blood NO GROWTH AFTER 3 DAYS Anaerobic Blood Culture - Preliminary NO GROWTH AFTER 3 DAYS Med Orders - Current: Current Medications Artificial Tears (Genteal Mild To Moderate Ophth Soln) 0 ml EYERT QID [facility] Last Admin: 01/14/18 20:25 Dose: 1 drop Divalproex Sodium (Depakote Er) 250 mg PO DAILY [facility] Last Admin: 01/15/18 08:47 Dose: 250 mg Divalproex Sodium (Depakote Er) 500 mg PO WITHDINNER [facility] Last Admin: 01/14/18 18:24 Dose: 500 mg Hydrophilic Base (Aquaphilic Ointment) 0 gm TOP BID@10,20 [facility] Last Admin: 01/14/18 20:24 Dose: 1 applic Potassium Chloride/Dextrose/Sod Cl (D5 1/2 Ns W/ 20 Meq/L Kcl) 1,000 mls @ 100 mls/hr IV Q10H [facility] Last Admin: 01/14/18 21:45 Dose: 100 mls/hr Levothyroxine Sodium (Levothyroxine) 75 mcg PO BEDTIME [facility] Last Admin: 01/14/18 20:25 Dose: 75 mcg Discontinued Medications Enoxaparin Sodium (Lovenox) 30 mg SUBCUT Q24H [facility] Last Admin: 01/12/18 17:54 Dose: 30 mg Hydrophilic Base (Aquaphilic Ointment) 0 gm TOP BID@10,20 [facility] Last Admin: 01/14/18 10:00 Dose: 1 applic Sodium Chloride (Normal Saline) 1,000 mls @ 150 mls/hr IV ASDIRECTED [facility] Last Admin: 01/11/18 22:39 Dose: 150 mls/hr Sodium Chloride (Sodium Chloride 0.45%) 1,000 mls @ 150 mls/hr IV ASDIRECTED [facility] Last Admin: 01/12/18 06:11 Dose: 150 mls/hr Potassium Chloride/Sodium Chloride (1/2 Ns With 20 Meq Kcl) 1,000 mls @ 100 mls /hr IV Q7H [facility] Last Admin: 01/13/18 00:08 Dose: Not Given Potassium Chloride/Sodium Chloride (1/2 Ns With 20 Meq Kcl) 1,000 mls @ 100 mls /hr IV ASDIRECTED [facility] Last Admin: 01/13/18 00:09 Dose: 100 mls/hr Potassium Chloride/Dextrose/Sod Cl (D5 1/2 Ns W/ 20 Meq/L Kcl) 1,000 mls @ 100 mls/hr IV ASDIRECTED [facility] Stop: 01/14/18 11:29 Last Admin: 01/14/18 01:37 Dose: 100 mls/hr Genteal Eye Drops * (Ptom) 0 drop EYERT QID [facility] Last Admin: 01/14/18 08:38 Dose: 1 drop *Q Meaningful Use (DIS) - VTE *Q VTE Criteria *Q: - Stroke *Q Stroke Criteria *Q: - AMI *Q AMI Criteria *Q:
[2018-01-15] MEDS: Hypromellose 0.3% Ophth Soln 15 ML Bottle EYERT SCH (09:43)
== END 2018-01-15 11:30 | disposition home or self-care (01) | DRG 641 ==
LOC: FB.MS 08:09 → OBSVTOIN 01-14 08:09
PROVIDERS: ADMIT Family Medicine; ATTEND Family Medicine
DX: E87.0 Hyperosmolality and hypernatremia (principal); N17.9 Acute kidney failure, unspecified; E86.0 Dehydration; Q90.9 Down syndrome, unspecified; E03.9 Hypothyroidism, unspecified; Z66 Do not resuscitate; Z51.5 Encounter for palliative care; D69.6 Thrombocytopenia, unspecified; D64.9 Anemia, unspecified
CPT/HCPCS: 36415; 80053; 81001; 84295; 84300; 85025; 87040; A9270; A9270-GY; J1650; J3480; J3490; J7040